=== PATIENT | female | born 1930 | race African-American/Black ===

== ENCOUNTER 2016-12-05 19:14 | Emergency (ER) | payer MEDICARE, BC ==
[~2016-12-05] VITALS: Ht 165.1 cm; Wt 69.8 kg
[~2016-12-05 19:14] MED LIST: ASPIRIN; CADUET 10 MG/201 TAB; CALCIUM; COUMADIN PO; MAG-OXIDE; MEVACOR PO; MICRO-K; MULTI-VIT; PACERONE PO; SYNTHROID; TENORETIC 50 TA1 TAB; ZANTAC PO; ZEGERID40 MG/PKT
== END 2016-12-05 21:54 | disposition home or self-care (01) ==
LOC: CED 19:14
DX: R04.0 Epistaxis (principal); I10 Essential (primary) hypertension; Z88.0 Allergy status to penicillin
CPT/HCPCS: 30901; 99283